=== PATIENT | male | born 1990 | race Caucasian/White ===

== ENCOUNTER 2020-03-02 14:43 | Emergency (ER) | payer MEDICAID ==
[~2020-03-02] VITALS: Ht 172.7 cm; Wt 81.2 kg
[2020-03-02 15:02] VITALS: BP 169/114
[2020-03-02] MEDS ORDERED: cefTRIAXone SOD 1,000 MG VL IM ONE (16:15)
[2020-03-02 16:19] LABS: Urine Bacteria FEW /hpf (None Seen); Urine Blood Negative /uL (Negative); Urine Specific Gravity 1.013 (1.001-1.035); Urine WBC 3 /hpf (0 - 3)
== END 2020-03-02 16:35 | disposition home or self-care (01) ==
LOC: ER 14:43
DX: N34.2 Other urethritis (principal); F17.210 Nicotine dependence, cigarettes, uncomplicated; Z20.2 Contact with and (suspected) exposure to infections with a predominantly sexual mode of transmission
CPT/HCPCS: 81001; 96372; 99283; J0696

== ENCOUNTER 2020-09-05 07:00 | Emergency (ER) | payer MEDICAID ==
[~2020-09-05] VITALS: Ht 172.7 cm; Wt 81.6 kg
[2020-09-05 07:05] VITALS: BP 142/105
== END 2020-09-05 08:11 | disposition home or self-care (01) ==
LOC: ER 07:00
DX: M25.531 Pain in right wrist (principal); F17.210 Nicotine dependence, cigarettes, uncomplicated
CPT/HCPCS: 73110

== ENCOUNTER 2021-07-02 18:52 | Emergency (ER) | payer SELFPAY ==
[~2021-07-02] VITALS: Ht 172.7 cm; Wt 77.1 kg
[2021-07-02] MEDS ORDERED: MORPHINE SULFATE 4 MG/ML SYR/VIAL IV ONE (20:15)
[2021-07-02] MEDS ORDERED: DOXYCYCLINE 100MG/250ML 250 ML IV ONE (20:30)
[2021-07-02] MEDS ORDERED: cefTRIAXone SOD 500 MG VL IM ONE (20:30)
[2021-07-02 21:31] LABS: Basophils # (auto) 0 10 ^3/uL (0-0.2); Basophils % (auto) 0.8 % (0.0-2.0); Eosinophils # (auto) 0.1 10 ^3/uL (0-0.8); Eosinophils % (auto) 3.8 % (0.0-7.0); Hematocrit 38.8 % (41.0-53.0); Hemoglobin 12.9 g/dL (13.5-17.5); Lymphocytes # (auto) 1.7 10 ^3/uL (0.4-5.4); Lymphocytes % (auto) 46.2 % (10.0-50.0); Mean Corpuscular Hgb Conc. 33.3 g/dL (32.0-36.0); Mean Corpuscular Volume 87.2 fL (80.0-100.0); Monocytes # (auto) 0.4 10 ^3/uL (0-1.3); Monocytes % (auto) 12.1 % (0.0-12.0); Neutrophils # (auto) 1.4 10 ^3/uL (1.6-8.6); Neutrophils % (auto) 37.1 % (37.0-80.0); Nucleated Red Blood Cells % 0.2 %; Red Blood Cells 4.45 10^6/uL (4.5-5.90); White Blood Cell 3.7 10^3/uL (4.4-10.8)
[2021-07-02 21:47] LABS: Albumin 3.4 g/dL (3.4-5.0); BUN/Creatinine Ratio 17.4; Calcium 8.4 mg/dL (8.5-10.1)
[2021-07-02 21:49] LABS: Bilirubin, Total 0.4 mg/dL (0.2-1.0); Total Protein 6.4 g/dL (6.4-8.2)
[2021-07-03 00:35] VITALS: BP 148/91
[2021-07-03] MEDS ORDERED: PERCOT PO (00:39)
[2021-07-03] MEDS ORDERED: CIPR-173 PO (00:39)
== END 2021-07-03 01:37 | disposition home or self-care (01) ==
LOC: ER 18:54
DX: A57 Chancroid (principal)
CPT/HCPCS: 36415; 80053; 85025; 86592; 87491; 87591; 96365; 96366; 96372; 99284; J0696; J2270; J3490; 96360